=== PATIENT | female | born 2005 | race Caucasian/White ===

== ENCOUNTER 2023-07-09 05:32 | Inpatient (IN) ==
[2023-07-09 07:15] LABS: ABS Eosinophils 0.1 10^3/uL (0.0-0.5); ABS Lymphocytes 1.7 10^3/uL (1.0-4.8); ABS Monocytes 0.6 10^3/uL (0.0-0.9); ABS Neutrophils 7.5 10^3/uL (1.5-7.6); ABS Nucleated RBC 0.01 10^3/ul; Eosinophil % 0.8 %; Hematocrit 38.9 % (35-45); Hemoglobin 12.5 g/dL (11.5-14.3); Lymphocyte % 16.7 %; Mean Corpuscular Hemoglobin 29.3 pg (27-33); Mean Corpuscular Hgb Conc 32.2 g/dL (31-36); Mean Corpuscular Volume 90.8 fL (80-97); Mean Platelet Volume 8.1 fL (7.5-11.2); Nucleated Red Blood Cells % 0.1 %/100WBC (0.0-0.8); Platelet Count 284 10^3/uL (150-450); Red Blood Count 4.28 10^6/uL (3.63-4.92); Red Cell Distribution Width 14.3 % (12-17); White Blood Count 9.9 10^3/uL (3.8-11.8)
[2023-07-09 07:40] LABS: Urine Appearance Turbid; Urine Bilirubin Negative (Negative); Urine Blood 2+ (Negative); Urine Color Colorless; Urine Glucose Negative (Negative); Urine Ketones 2+ (Negative); Urine Nitrite 2+ (Negative); Urine Protein 1+ (>=30 mg/dL) (Negative); Urine Specific Gravity 1.009 (1.002-1.030); Urine Urobilinogen Negative (Negative)
[2023-07-09 07:47] LABS: Urine Benzodiazepine Screen None Detected (None Detect); Urine Cannabinoids Screen Presumptive Positive (None Detect); Urine Opiates Screen None Detected (None Detect)
[2023-07-09 08:12] LABS: Urine Bacteria 1+ /HPF (Absent); Urine Red Blood Cell 1+(3-5/hpf) /HPF (0-Trace); Urine Squamous Epithelial Cell Present /HPF (Absent); Urine White Blood Cell 3+(>20/hpf) /HPF (0-Trace)
[2023-07-09 08:39] LABS: AST 28 U/L (13-39); Potassium 3.6 mmol/L (3.5-5.0)
[2023-07-09 08:41] LABS: ALT 13 U/L (7-52); Acetaminophen < 15 mcg/mL; Albumin 4.1 g/dL (3.2-5.2); Albumin/Globulin Ratio 1.6 (1-3); Alcohol, S < 13 mg/dL (<13); Alkaline Phosphatase 75 U/L (35-149); Anion Gap 17 mmol/L (2-16); Blood Urea Nitrogen 6 mg/dL (6-24); CO2 Carbon Dioxide 17 mmol/L (22-32); Calcium 9.5 mg/dL (8.6-10.3); Chloride 104 mmol/L (101-111); Creatinine, Serum 0.62 mg/dL (0.51-0.95); Globulin 2.6 g/dL (2-4); Glucose 75 mg/dL (70-100); Salicylate < 2.50 mg/dL (<30); Sodium 138 mmol/L (135-145); Total Bilirubin 0.8 mg/dL (0.2-1.0); Total Protein 6.7 g/dL (6.4-8.9); eGFR CKD-EPI 130.7 (>60)
[2023-07-09 09:14] LABS: HCG Pregnancy < 0.60 mIU/mL; TSH Ultra Thyroid Stim Horm 0.88 mcIU/mL (0.34-5.60)
[2023-07-09] MEDS ORDERED: Al Hydrox/Mg Hydrox/Simet LIQ 30 ML UDC PO PRN (19:34)
[2023-07-09] MEDS ORDERED: chlorproMAZINE TAB 50 MG Q6H PRN AGITATION PO (19:36)
[2023-07-09] MEDS ORDERED: Benzocaine/Menthol LOZ MT PRN (21:57)
[2023-07-09 22:15] LABS: Rapid Strep Molecular Negative (Negative)
[2023-07-10] MEDS: Vitamin THERAPEUTIC TAB PO SCH (10:06)
[2023-07-11] MEDS ORDERED: Sulfamethox/Trimethoprim DS TAB 800/160 mg PO SCH (21:00)
[2023-07-11] MEDS: Nitrofurantoin (monohydrate/macrocrystals) 100 mg CAP PO SCH (21:44)
[2023-07-12 08:38] VITALS: BP 107/51
== END 2023-07-12 13:49 | disposition home or self-care (01) | DRG 776 ==
LOC: ED 05:32 → EDHOLD 19:20 → BSU 21:44
PROVIDERS: ADMIT Psychiatry & Neurology Addiction Psychiatry; ATTEND Psychiatry & Neurology Psychiatry